=== PATIENT | female | born 1970 | race American Indian/Alaskan Native ===

== ENCOUNTER 2019-04-25 09:29 | Outpatient (CLI) | payer OTHER ==
--- NOTE | 2019-04-25 16:18 | Ultrasound Report ---
BILATERAL DIGITAL DIAGNOSTIC MAMMOGRAM WITH CAD -- 04/25/2019 BILATERAL LIMITED BREAST ULTRASOUND INDICATION: Recall to evaluate bilateral asymmetries at screening. We have not obtain a prior mammogr am for comparison. TECHNIQUE: Digital bilateral mammographic imaging was performed. Spot compression views were obtaine d. Bilateral lateral views were obtained. This examination was interpreted with the benefit of Comput er-Aided Detection (CAD) analysis. COMPARISON: 04/12/2019 FINDINGS: Breast Density: The breasts are heterogeneously dense, which may obscure small masses. MAMMOGRAPHIC FINDINGS: Partial effacement of bilateral asymmetries spot images. Lateral views are neg ative. ULTRASOUND FINDINGS: Targeted ultrasound evaluation was performed of the area of interest. 9 cyst i n the right breast at 9:00 7 cm from the nipple measures 4 x 3 x 4 mm. A benign cyst in the right anisa ast at 10:00 11 cm from the nipple measures 5 x 8 x 2 mm. No solid mass or suspicious shadowing of th e right breast. A benign intramammary lymph node in the left breast at 2:00 8 cm from the nipple oriana ures 7 x 2 x 4 mm. No solid mass or suspicious shadowing of the left breast. IMPRESSION: Bilateral benign findings. Follow up recommendation: Routine yearly BI-RADS Category 2: Benign. A "normal" or negative report should not discourage follow up or biopsy of a clinically significant f inding. A written summary of these findings will be mailed to the patient. The patient will be entered into a mammography reporting system which will generate a reminder letter for the patient's next appointmen t at the appropriate interval. According to the [employer], yearly mammograms are recommended starting at age 40 and continuing as long as a woman is in good health. Breast MRI is recommended for women with an shashi roximately 20-25% or greater lifetime risk of breast cancer, including women with a strong family his tory of breast or ovarian cancer and women who have been treated for Hodgkin's disease. Signer Name: David Beltre MD Signed: 04/25/2019 4:14 PM Workstation Name: [id number]
== END 2019-04-25 09:30 | disposition home or self-care (01) ==
LOC: SPVWC 09:29
PROVIDERS: ATTEND Advanced Practice Midwife
DX: N64.59 Other signs and symptoms in breast (principal)
CPT/HCPCS: 77066

== ENCOUNTER 2021-04-17 11:29 | Outpatient (CLI) | payer OTHER ==
--- NOTE | 2021-04-17 13:56 | Mammography Report ---
DIGITAL SCREENING MAMMOGRAM WITH CAD, 04/17/2021 CLINICAL INFORMATION / INDICATION: Routine screening mammography. SCREENING MAMMO Z12.31 TECHNIQUE: Digital bilateral 2D mammography was obtained in the craniocaudal and mediolateral obliqu e projections. This examination was interpreted with the benefit of Computer-Aided Detection analysis . COMPARISON: 04/16/2020 FINDINGS: Breast Density: The breasts are heterogeneously dense, which may obscure small masses. No dominant mass, suspicious calcifications, or architectural distortion in either breast. IMPRESSION: No mammographic evidence of malignancy. Follow up recommendation: Routine yearly BI-RADS Category 1: Negative. A "normal" or negative report should not discourage follow up or biopsy of a clinically significant f inding. A written summary of these findings will be mailed to the patient. The patient will be entered into a mammography reporting system which will generate a reminder letter for the patient's next appointmen t at the appropriate interval. The [employer] recommends yearly mammograms starting at age 40 and continuing as l liat as a woman is in good health. Breast MRI is recommended for women with an approximate 20-25% or greater lifetime risk of breast cancer, including women with a strong family history of breast or ova ugo cancer or who have been treated for Hodgkin's disease. Signer Name: Rowdy Nuñez MD Signed: 04/17/2021 1:51 PM Workstation Name: [id number]
== END 2021-04-17 11:30 | disposition home or self-care (01) ==
LOC: SPVWC 11:29
PROVIDERS: ATTEND Advanced Practice Midwife
DX: Z12.31 Encounter for screening mammogram for malignant neoplasm of breast (principal)
CPT/HCPCS: 77067